=== PATIENT | female | born 1955 | race Caucasian/White ===

== ENCOUNTER → 2022-04-28 | Day surgery (SDC) | payer BC, MEDICARE, OTHER ==
[~2022-04-28] MED LIST: DEXAMETHASONE SOD PHOSPHATE 4 MG/ML 1 ML VIAL IV PRN; FAMOTIDINE 20 MG/2 ML VIAL IV PRN; LACTATED RINGERS 1,000 ML IV ONE; LACTATED RINGERS 1,000 ML IV SCH; LIDOCAINE 1%-EPI 1:100,000 20 ML VIAL SQ ONE; LIDOCAINE 2% INJ 20 MG/ML (2 ML VIAL) ONE; MIDAZOLAM 2 MG/2 ML VIAL IV PRN; MIDAZOLAM 2 MG/2 ML VIAL IVP ONE; MIDAZOLAM 2 MG/2 ML VIAL ONE; ONDANSETRON 4 MG/2 ML VIAL IVP PRN; PROPOFOL 10 MG/ML 20 ML VIAL IV ONE; SUCCINYLCHOLINE CHLORIDE 200 MG/10 ML VIAL IV ONE; fentaNYL (PF) 50 MCG/ML 2 ML AMP IV PRN; fentaNYL (PF) 50 MCG/ML 2 ML AMP ONE; oxyCODONE-APAP 7.5-325MG 1 EACH TAB ONE; oxyCODONE-APAP 7.5-325MG 1 EACH TAB PO ONE
[2022-04-28] MEDS: OXYMETAZOLINE 0.05% NASL SPRAY 1 SPRAY BOTTLE EA NOSTRIL PRN ×5 (08:23→08:45)
[2022-04-28 08:32] VITALS: TEMP 97.1
[2022-04-28 08:53] LABS: Glucose,Whole Blood 101 mg/dL (70-110)
--- NOTE | 2022-04-28 11:21 | P.OP ---
Date of Procedure: 04/28/22 Preoperative Diagnosis: Chronic sinusitis Sinonasal polyposis Postoperative Diagnosis: Same Procedure(s) Performed: Bilateral endoscopic sinus surgery with polypectomy including bilateral maxillary antrostomy with removal of tissue from maxillary sinuses bilateral anterior posterior ethmoidectomy bilateral sphenoidotomy with removal of tissue from the sphenoid sinuses and bilateral frontal sinusotomy with exploration and removal of tissue from the frontal sinuses Anesthesia: ARELY Surgeon: Shon Hansen Estimated Blood Loss (ml): 5 Pathology: other (Sinus contents) Condition: stable Disposition: PACU Indications for Procedure: This 67-year-old white female who has history of sinonasal polyposis having had surgery in 2004 and has had recurrent polyps with congestion drainage and recurrent sinusitis. 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 There were some residual ethmoid air cells as well as obstruction of the frontal and sphenoid sinuses bilaterally. Description of Procedure: The patient was brought into the operative suite and placed in a supine position. The patient underwent induction of general anesthesia with oral endotracheal intubation without difficulty. The patient was prepped and draped in the usual aseptic fashion with the orbits in the operating field for monitoring to the case and the computed tomography scan was on the computer screen for review throughout the case. 1% lidocaine with 1 :100,000 epinephrine was infused submucosally into the lateral nasal munguia bilaterally. This was left to work for 7 minutes vasoconstrictive effect Full 0 endoscopic examination is performed bilaterally. Beginning on the left, the maxillary ostium was located with a ballpoint probe and was enlarged at the expense of the anterior and posterior fontanelle taking care anteriorly not to injure the lacrimal bone. There were small polyps in the maxillary sinus which were removed with giraffe forceps. Residual anterior ethmoid air cells were opened and polyps removed anteriorly and posteriorly. The sphenoid sinus was then opened and explored with small polyps removed with straight Blakesley forceps and the frontal sinusotomy was also performed with giraffe forceps and curved suction with exploration and removal of polyps. Attention was then turned to the right where the procedures were followed as they were on the left including revision maxillary antrostomy with culture as there was purulence as well as evidence of mycetoma with fungal debris which was removed with suctioning and irrigation. Additionally the anterior and posterior ethmoidectomy was performed as well as sphenoidotomy with removal of tissue from the sphenoid sinuses and frontal sinusotomy with removal of tissue from the frontal sinus. . The patient was suctioned in oral gastric fashion and was allowed to emerge from general anesthesia having tolerated procedure well and was extubated in the operating suite and transferred to the postoperative recovery area in satisfactory condition.
[2022-04-28 13:43] VITALS: BP 139/76; PULSE 70; RESP 18
== END | disposition home or self-care (01) ==
LOC: OR 08:01
PROVIDERS: ATTEND Otolaryngology
DX: J32.9 Chronic sinusitis, unspecified (principal); J33.9 Nasal polyp, unspecified; J45.909 Unspecified asthma, uncomplicated; E07.9 Disorder of thyroid, unspecified; Z79.51 Long term (current) use of inhaled steroids; Z79.890 Hormone replacement therapy; Z79.899 Other long term (current) drug therapy; Z91.040 Latex allergy status; Z88.7 Allergy status to serum and vaccine
CPT/HCPCS: 87070; 87205; 87075; 87077; 87186; 31253; 31267; 31288; J2250; J0330; J1100; J0690; J2405; J3010; J2704; J2001; 88305; 88312